=== PATIENT | male | born 1940 | race Two or more races ===

== ENCOUNTER 2020-06-03 07:18 | Day surgery (SDC) | payer OTHER | END 2020-06-03 10:45 | disposition home or self-care (01) | LOC: AMB-ENDOS 07:18 | PROVIDERS: ATTEND Colon & Rectal Surgery | DX: D12.3 Benign neoplasm of transverse colon (principal); K64.2 Third degree hemorrhoids; Z20.828 Contact with and (suspected) exposure to other viral communicable diseases ==

== ENCOUNTER 2021-09-15 06:13 | Day surgery (SDC) | payer OTHER | END 2021-09-15 10:20 | disposition home or self-care (01) | LOC: AMB-ENDOS 06:13 | PROVIDERS: ATTEND Colon & Rectal Surgery | DX: D12.3 Benign neoplasm of transverse colon (principal); K64.0 First degree hemorrhoids; Z20.822 Contact with and (suspected) exposure to COVID-19 ==